=== PATIENT | male | born 1970 | race Caucasian/White ===

== ENCOUNTER 2022-07-10 07:44 | Day surgery (SDC) | payer BC, SELFPAY ==
[2022-07-07 11:08] VITALS: BMI 37.3
[2022-07-10 08:06] VITALS: BP 145/85; PULSE 66; RESP 17; TEMP 36.2; O2SAT 95
[2022-07-10] MEDS: sodium chloride 0.9% 1,000 ML 30 ML IV (08:18)
--- NOTE | 2022-07-10 08:33 | ANES.PREANE2 ---
Pre-Anesthetic Assessment Height/Weight: Height 1.83 m Weight 124.738 kg Temp Pulse Resp BP Pulse Ox O2 Del Method 97.2 F L 66 17 145/85 95 07/10/22 08:06 07/10/22 08:06 07/10/22 08:06 07/10/22 08:06 07/10/22 08:06 07/10/22 08:06 Operation Date: 07/10/22 09:30 Proposed Procedures p [id number] EGD [id number] Colonoscopy Z12.11,K21.9(Not Applicable) - Demetrius River DO s Colonoscopy(Not Applicable) - Demetrius River DO Familial anesthetic complications: None Was Beta Jazlyn taken within 24 hours: N/A Was Clonidine taken within 24 hours: N/A Last intake: Intake Last Liquid Date 07/09/22 Last Liquid Time 23:00 Last Solid Date 07/08/22 Last Solid Time 23:00 Social Alcohol (Social) and Tobacco .5 x 30 years pack(s) per day Exam alert, oriented x 3, clear to auscultation bilaterally and regular rate & rhythm Airway Submandibular: within normal limits Cervical ROM: within normal limits Mallampati: Class III Dentition: chipped and full History/ROS No significant history except as noted and No significant complaints Pulmonary Chronic Obstructive Pulmonary Disease and Exertional Dyspnea CV/HEM Coronary Artery Disease, Hypertension (White coat syndrome) and Palpitations Carries nitroglycerin for palpitations None reported Hepatic None reported GI Gastroesophageal Reflux Disease (None this am, controlled with medications) and Peptic Ulcer Disease Metabolic Hyperlipidemia (Borderline) and Morbid Obesity Musc/skel Lower Back Pain and Osteoarthritis/DJD Neuropsych Anxiety Anesthetic Plan ASA status: 3 Anesthesia: Anesthesia Evaluation, General and MAC Risk of > 500 ml blood loss (7ml/kg in children): No Medications/Allergies Home Medications Medication Instructions Recorded Confirmed Last Taken Type cetirizine 10 mg tablet 10 mg PO DAILY PRN Allergy Symptoms 06/03/22 07/07/22 07/06/22 History pantoprazole 40 mg tablet,delayed 40 mg PO BID 6 weeks #84 tabs 06/03/22 07/07/22 07/09/22 Rx release (Protonix) ashwhitneydha root extract 300 mg 600 mg PO DAILY 07/07/22 07/07/22 07/09/22 History capsule cholecalciferol (vitamin D3) 125 125 mcg PO DAILY 07/07/22 07/07/22 07/09/22 History mcg (5,000 unit) tablet (Vitamin D3) multivitamin 1 tab PO DAILY 07/07/22 07/07/22 07/09/22 History omega-3 fatty acids 1 cap PO DAILY 07/07/22 07/07/22 07/09/22 History Allergies Allergy/AdvReac Type Severity Reaction Status Date / Time No Known Allergies Allergy Unverified 07/10/22 08:00 Current Medications Generic Name Dose Route Start Last Admin Trade Name Freq PRN Reason Stop Dose Admin Sodium Chloride 1,000 mls @ 30 mls/hr 07/10/22 08:00 07/10/22 08:18 Sodium Chloride 0.9% IV 07/11/22 07:59 30 mls/hr .Q24H CARLOS Administration PFSH Anesthesia Surgical History History of bilateral knee arthroplasty History of shoulder surgery Data Anesthesia Cardiac Studies: No Data to Display
--- NOTE | 2022-07-10 08:51 | PM.HP ---
Providers/Chief Complaint Primary Care Provider: Akua Johnson Chief Complaint: Gastro-esophageal reflux disease w/o esophagitis History of Present Illness Iban Gomez is a 52 year old male here for EGD and colonoscopy Medications/Allergies Home Medications Medication Instructions Recorded Confirmed Last Taken Type cetirizine 10 mg tablet 10 mg PO DAILY PRN Allergy Symptoms 06/03/22 07/07/22 07/06/22 History pantoprazole 40 mg tablet,delayed 40 mg PO BID 6 weeks #84 tabs 06/03/22 07/07/22 07/09/22 Rx release (Protonix) petronaa root extract 300 mg 600 mg PO DAILY 07/07/22 07/07/22 07/09/22 History capsule cholecalciferol (vitamin D3) 125 125 mcg PO DAILY 07/07/22 07/07/22 07/09/22 History mcg (5,000 unit) tablet (Vitamin D3) multivitamin 1 tab PO DAILY 07/07/22 07/07/22 07/09/22 History omega-3 fatty acids 1 cap PO DAILY 07/07/22 07/07/22 07/09/22 History Allergies Allergy/AdvReac Type Severity Reaction Status Date / Time No Known Allergies Allergy Unverified 07/10/22 08:00 PFSH Acute PFSH: Surgical History History of bilateral knee arthroplasty History of shoulder surgery Vitals/I&O/Wt Last Vital Signs Temp 97.2 F L 07/10/22 08:06 Pulse 66 07/10/22 08:06 Resp 17 07/10/22 08:06 BP 145/85 07/10/22 08:06 Pulse Ox 95 07/10/22 08:06 O2 Del Method 07/10/22 08:06 A&P Assessment and plan (1) Colon cancer screening: (2) GERD (gastroesophageal reflux disease): Plan EGD and colonoscopy Attestations Medical Necessity Statement*: Home Coding Level of Care Code Acute Code for Chg Fwd Diagnoses Colon cancer screening Z12.11 GERD (gastroesophageal reflux disease) K21.9
[2022-07-10 09:19] VITALS: BP 101/67; PULSE 86; RESP 16; TEMP 36.1; O2SAT 93
[2022-07-10 09:32] VITALS: BP 104/61; PULSE 69; RESP 18; O2SAT 97
--- NOTE | 2022-07-10 13:29 | ANE.PACU2 ---
Inpatient post-anesthesia follow up: Airway intact: Yes Vital signs: Temperature 97 F Pulse Rate 69 Respiratory Rate 18 Blood Pressure 104/61 Pulse Oximetry 97 Oxygen Delivery Me thod Room Air Oxygen Flow Rate Fraction of Inspir ed Oxygen Hydration adequate: Yes Nausea and vomiting: No Pain level: 2 Mental status: Baseline
== END 2022-07-10 09:53 | disposition home or self-care (01) ==
PROVIDERS: PCP Nurse Practitioner Family; Visit Provider Surgery
PROC: 0DJ08ZZ Inspection of Upper Intestinal Tract, Via Natural or Artificial Opening Endoscopic (ICD-10-PCS; CPT 43235; principal; 2022-07-10 09:30)
PROC: 0DJD8ZZ Inspection of Lower Intestinal Tract, Via Natural or Artificial Opening Endoscopic (ICD-10-PCS; CPT 45378; 2022-07-10 09:30)
DX: Z12.11 Encounter for screening for malignant neoplasm of colon (principal); K21.9 Gastro-esophageal reflux disease without esophagitis; D12.8 Benign neoplasm of rectum; K29.70 Gastritis, unspecified, without bleeding; K29.80 Duodenitis without bleeding; J44.9 Chronic obstructive pulmonary disease, unspecified; I25.10 Atherosclerotic heart disease of native coronary artery without angina pectoris; I10 Essential (primary) hypertension; Z87.11 Personal history of peptic ulcer disease; E78.5 Hyperlipidemia, unspecified; E66.01 Morbid (severe) obesity due to excess calories; Z68.37 Body mass index [BMI] 37.0-37.9, adult
CPT/HCPCS: 43239; 45385; 88305; J2704; J7030